=== PATIENT | male | born 1955 | race Hispanic/Latino ===

== ENCOUNTER 2018-06-27 19:17 | Emergency (ER) | payer OTHER | END 2018-06-27 20:35 | disposition home or self-care (01) | LOC: SCSER 19:17 | DX: B02.9 Zoster without complications (principal); I10 Essential (primary) hypertension; M10.9 Gout, unspecified; Z87.891 Personal history of nicotine dependence; Z79.899 Other long term (current) drug therapy | CPT/HCPCS: 99282 ==